=== PATIENT | male | born 1955 | race Caucasian/White ===

== ENCOUNTER 2018-02-02 19:00 | Emergency (ER) | payer MEDICAID ==
[~2018-02-02] VITALS: Ht 180.3 cm; Wt 107.9 kg
[2018-02-02 19:02] VITALS: BP 168/109
== END 2018-02-02 19:21 | disposition home or self-care (01) ==
LOC: ED 19:10
DX: B86 Scabies (principal); I10 Essential (primary) hypertension
CPT/HCPCS: 99283

== ENCOUNTER 2018-03-03 12:58 | Emergency (ER) | payer MEDICAID ==
[~2018-03-03] VITALS: Ht 180.3 cm; Wt 107.0 kg
[~2018-03-03 12:58] MED LIST: AMLO10TA2 PO
[2018-03-03 12:59] VITALS: BP 162/102
[2018-03-03 14:50] LABS: MICROSCOPIC NOT IND
[2018-03-03 14:52] LABS: CULTURE INDICATED? NO
== END 2018-03-03 15:24 | disposition home or self-care (01) ==
LOC: ED 15:23
DX: N43.3 Hydrocele, unspecified (principal); I10 Essential (primary) hypertension
CPT/HCPCS: 76870; 81003; 99285

== ENCOUNTER 2018-04-23 07:47 | Emergency (ER) | payer MEDICAID ==
[~2018-04-23] VITALS: Ht 177.8 cm; Wt 106.4 kg
[2018-04-23] MEDS ORDERED: BP MED PO (08:12)
[2018-04-23 08:58] LABS: ALBUMIN 3.5 g/dL (3.4-5.0); ANION GAP 7 mmol/L (5-15); CALCIUM 8.8 mg/dL (8.5-10.1); CHLORIDE 111 mmol/L (98-107); CREATININE 1.37 mg/dL (0.7-1.3)
[2018-04-23 09:02] LABS: TROPONIN I < 0.015 ng/mL (0.000-0.045)
[2018-04-23 09:04] LABS: BASOPHILS # (AUTO) 0.09 x10^3/uL (0-0.1); BASOPHILS % (AUTO) 1 % (0-1); EOSINOPHILS # (AUTO) 0.32 x10^3/uL (0-0.4); EOSINOPHILS % (AUTO) 4 % (1-7); LYMPHOCYTES # (AUTO) 4.61 x10^3/uL (1-3.4); LYMPHOCYTES % (AUTO) 54 % (22-44); MD NO; MEAN CORPUSCULAR HGB CONC 33.4 g/dL (33.2-36.2); MEAN CORPUSCULAR VOLUME 83.9 fL (81-97); MEAN PLATELET VOLUME 7.1 fL (7.4-10.4); MONOCYTES # (AUTO) 0.72 x10^3/uL (0.2-0.8); MONOCYTES % (AUTO) 9 % (2-9); NEUTROPHILS # (AUTO) 2.73 x10^3/uL (1.8-6.8); NEUTROPHILS % (AUTO) 32 % (42-75); PLATELET COUNT 249 x10^3/uL (130-400); RED BLOOD COUNT 5.02 x10^6/uL (4.38-5.82); RED CELL DISTRIBUTION WIDTH 13.6 % (9.4-14.8)
[2018-04-23 09:55] VITALS: BP 172/107
== END 2018-04-23 10:11 | disposition home or self-care (01) ==
LOC: ED 09:11
DX: R60.0 Localized edema (principal); I10 Essential (primary) hypertension
CPT/HCPCS: 36415; 71045; 80048; 82040; 83880; 84484; 85025; 93005; 99285